=== PATIENT | male | born 1965 | race Caucasian/White ===

== ENCOUNTER 2020-03-15 13:25 | Observation (INO) | payer BC, SELFPAY ==
[2020-03-15] VITALS (8 sets, daily range): BP systolic 116–166; BP diastolic 72–99; PULSE 56–69; RESP 16–18; TEMP 36.5–37.1; O2SAT 93–100; BMI 38.1; BMI 37.4; BMI 37.5
--- NOTE | 2020-03-15 13:32 | NURSING ---
NO OLD EKGS
--- NOTE | 2020-03-15 14:02 | EKG12_ITS ---
Test Reason : CP Blood Pressure : / mmHG Vent. Rate : 060 BPM Atrial Rate : 060 BPM P-R Int : 178 ms QRS Dur : 104 ms QT Int : 394 ms P-R-T Axes : 043 018 029 degrees QTc Int : 394 ms Normal sinus rhythm Normal ECG Confirmed by SARA SINGH, MAME ([id number]), acquisition editor RUDDY ALEXIS ([id number]) on 03/21/2020 9:10:48 AM Referred By: NAEL Confirmed By:KELLY RUIZ MD
--- NOTE | 2020-03-15 14:03 | ED.DCSUM_ITS ---
History of Present Illness Chief Complaint: Chest Pain Informant: Patient Onset: Yesterday Current Severity: Mild Maximum Severity: Moderate Narrative: Patient presents secondary to chest pain. He states last evening he was driving and got sharp chest pain left upper chest. This lasted a few minutes but then was replaced with a constant ache in the left upper chest and shoulder. Patient does have history of cardiac disease and has one cardiac stent that was placed 6 years ago. He states he had another lesion at that time was approximately 45 or 50% to that was not treated. He has not had a repeat cath since that time to reevaluate this lesion. Patient denies shortness of breath or sweats. - Past Medical History (1) Diabetes Status: Chronic (2) Hypertension Status: Chronic (3) High cholesterol Status: Chronic (4) H/O heart artery stent Status: Chronic (5) Hx of appendectomy Status: Chronic Past Medical History - Allergies and Home Meds Allergies/Adverse Reactions: Allergies metformin Allergy (Verified 03/15/20 13:28) NEEDS FOLLOW-UP LETHARGIC morphine Allergy (Verified 03/15/20 13:28) NEEDS FOLLOW-UP SEVERE HYPOTENSION Primary Care Physician: NOT,DEFINED [NON-STAFF] - Prior records reviewed: Yes Lives: Spouse/ Significant Other Smoking Status: Never smoker Review of Systems General: Denies: Chills, Fever Eyes: Denies: Visual changes - bilaterally ENT: Denies: Bilateral ear pain Cardiovascular: Reports: Chest pain Respiratory: Denies: Dyspnea, Cough Gastrointestinal: Denies: Abdominal pain, Nausea, Vomiting, Diarrhea Genitourinary: Denies: Dysuria Skin: Denies: Rash Neurological: Denies: Headache Hematologic: Denies: Easy bruising, Easy bleeding Allergy: Denies: Uticaria Physical Exam Vital Signs/Narrative: Vital Signs Temp Pulse Resp BP Pulse Ox 03/15/20 13:29 98.3 F 600 H 16 162/96 H 97 Inital Vital Signs reviewed: Yes General: Well nourished, Well developed Head: Normocephalic ENT: Moist mucous membranes Neck: Supple Cardiovascular: Regular rate, Regular rhythm Respiratory: No distress, CTA bilaterally Abdomen: Soft, Nontender Extremities: Nontender Skin: Normal color Neurological: Alert, Oriented x3 Psychological: Normal affect Diagnostic/Tx/Re-eval Impressions Chest X-Ray 03/15/20 14:06 IMPRESSION: There is a well-defined 1.5 cm x 1.3 cm nodule in the right lower lobe. No prior examination is available for comparison. Correlation with a CT scan is recommended if clinically indicated. Electronically Signed: Fortino Charles, at 14:19 EDT , Service support , 03/15/20 14:06 Chest 1 View (Portable) [RAD] Stat Laboratory Results 03/15/20 03/15/20 13:40 13:40 WBC 4.8 RBC 4.83 Hgb 14.6 Hct 43.1 MCV 89.2 MCH 30.2 MCHC 33.9 RDW Std Deviation 40.0 RDW Coeff of Sabina 12.3 Plt Count 177 MPV 9.4 Immature Gran % (Auto) 0.200 Neut % (Auto) 62.0 Lymph % (Auto) 25.9 [place] % (Auto) 8.6 Eos % (Auto) 2.9 Baso % (Auto) 0.4 Absolute Neuts (auto) 3.0 Absolute Lymphs (auto) 1.24 Nucleated RBC % 0 Sodium 140 Potassium 4.1 Chloride 108 H Carbon Dioxide 27.0 Anion Gap 5 BUN 14 Creatinine 1.05 Estim Creat Clear Calc 87.25 Est GFR (MDRD) Af Amer 94 Est GFR (MDRD) Non-Af 78 BUN/Creatinine Ratio 13.3 Glucose 172 H Calcium 9.2 Troponin I < 0.015 - EKG Initial EKG Interpretation: Sinus Rhythm - Sinus at 60 with no acute ischemia. - Medical Decision Making She was given aspirin on arrival. Test results are discussed with him. There is findings of a lung nodule on his chest x-ray, however patient did have a CT scan of his chest on February [id number] that showed densely calcified right lower lobe nodule that is thought to be benign. Patient does voice concern that in the past his cardiology tests have always been unremarkable however he did have significant blockage requiring a stent. I spoke with hospitalist about this and he will speak with cardiology here as well. Patient will be admitted for further evaluation. ED Disposition - Plan for ED Patient: Disposition: [facility] Diagnosis: Chest pain Referrals: NOT,DEFINED [NON-STAFF] -
--- NOTE | 2020-03-15 14:06 | RAD_ITS ---
STUDY: X-RAY CHEST REASON FOR EXAM: Male, 55 years old. CHEST PAIN THAT STARTED LAST NIGHT, ALVARENGA TECHNIQUE: Single AP portable view of the chest. COMPARISON: None. FINDINGS: EKG electrodes are seen. There is a 1.5 cm x 1.3 cm well-defined nodule in the right lower lobe. There are scattered calcified granulomas. Correlation with a CT scan is recommended. There is no demonstrated pleural abnormality. Normal size heart. Normal mediastinum and kaiser. Normal visualized pulmonary arteries. Normal visualized aortic arch and descending thoracic aorta. There are degenerative changes of the visualized thoracic spine. Normal visualized ribs, clavicles, and shoulders. There is no demonstrated abnormality of the visualized soft tissue structures of the upper abdomen. RAD/Chest 1 View (Portable) IMPRESSION: There is a well-defined 1.5 cm x 1.3 cm nodule in the right lower lobe. No prior examination is available for comparison. Correlation with a CT scan is recommended if clinically indicated. Electronically Signed: Fortino Charles, at 14:19 EDT , Service support ,
[2020-03-15] MEDS: Aspirin 81 MG TAB.CHEW 324 MG PO (14:16)
[2020-03-15 14:17] LABS: Absolute Lymphocyte Count 1.24 X10^3/uL (0.83-4.51); Basophil# 0.02 X10^3/uL; Basophil% 0.4 % (0-1); Eosinophil# 0.14 X10^3/uL; Eosinophils% 2.9 % (0-5); Hematocrit 43.1 % (40-54); Hemoglobin 14.6 g/dL (13.0-16.5); Lymphocyte # 1.24 X10^3/ul (4.0); Lymphocyte % 25.9 % (19-41); Mean Corp Hgb Conc 33.9 g/dL (32-36); Mean Corpuscular Hgb 30.2 pg (27.0-32.0); Mean Corpuscular Volume 89.2 fL (80-94); Mean Platelet Vol. 9.4 fl (6.2-12.0); Monocyte# 0.41 X10^3/uL; Monocyte% 8.6 % (0-10); NRBC Flagged by Analyzer 0 % (0-5); Neutrophil # 2.97 X10^3/uL (2.7-7.7); Platelet Count 177 K/mm3 (150-450); RBC Distribution Width CV 12.3 % (11.6-14.6); Red Blood Count 4.83 M/mm3 (4.6-6.2); White Blood Count 4.8 K/mm3 (4.4-11.0)
[2020-03-15 14:26] LABS: Anion Gap 5 (5-15); BUN 14 mg/dL (7-18); BUN/Creat Ratio 13.3 RATIO (10-20); Calcium,Total 9.2 mg/dL (8.5-10.1); Chloride 108 mmol/L (98-107); Creatinine, Serum 1.05 mg/dL (0.70-1.30); EST Glomerular Filtration Rate 78 mL/min (>60); Est Glom Filt Rate - Afr Amer 94 mL/min (>60); Estimated Creatinine Clearance 87.25 ml/min; Glucose 172 mg/dL (74-106); Potassium 4.1 mmol/L (3.5-5.1); Sodium Level 140 mmol/L (136-145)
--- NOTE | 2020-03-15 15:04 | NURSING ---
PCU OBS [facility]
--- NOTE | 2020-03-15 15:21 | HP.PCM_ITS ---
Problem List (1) Benign prostatic hyperplasia Status: Chronic (2) Hyperlipidemia Status: Chronic (3) Type 2 diabetes mellitus Status: Chronic (4) Hypertension Status: Chronic (5) H/O heart artery stent Status: Chronic (6) Chest pain Status: Acute History of Present Illness Date of Admission: 03/15/20 Chief Complaint: Chest pain. The patient is a 55 year old M with past medical history as mentioned above presented to the emergency room because of chest pain. Patient symptoms started yesterday when he was driving back home, started having left-sided chest pain, initially was sharp pain, 10 out of 10 in severity, radiates to his left shoul drew and left upper arm, lasted for about 3 minutes and then started to improve. Afterwards, he continued to have dull aching pain which was around 4-5 out of 10 in severity and has been constant since then. He denied associated shortness of breath, palpitation, dizziness or lightheadedness. He denied diaphoresis, nausea or vomiting. 6 years ago, he had recurrent episode of chest pain for which he had stress test that was done twice at [facility] and according to the patient, both stress test came back okay. His doctor decided to go for heart cath that time and he was found to have a lesion in his 1 of the coronary arteries of 85% stenosis which was stented x1 and he was informed that he had another blood vessel lesion which is about 50% stenosis. No official documents available. In the emergency department, blood pressure was slight elevated, other vital signs were stable. Routine blood work was unremarkable. EKG revealed normal sinus rhythm, normal intervals, normal QRS, no acute hemic changes. Troponin was negative. He is being admitted for chest pain for evaluation. Past Medical History Past Medical History (Chronic Problems): Chronic Problems Benign prostatic hyperplasia (Chronic) Hyperlipidemia (Chronic) Type 2 diabetes mellitus (Chronic) Hypertension (Chronic) H/O heart artery stent (Chronic) Hx of appendectomy (Chronic) Allergies metformin Allergy (Verified 03/15/20 13:28) NEEDS FOLLOW-UP LETHARGIC morphine Allergy (Verified 03/15/20 13:28) NEEDS FOLLOW-UP SEVERE HYPOTENSION Home Medications: Ambulatory Orders Medication Instructions Recorded Glimepiride [Amaryl] 4 mg PO BID 03/15/20 Losartan Potassium 25 mg PO DAILY 03/15/20 Metoprolol Tartrate 12.5 mg PO BID 03/15/20 Rosuvastatin Calcium [Crestor] 10 mg PO SA 03/15/20 Tamsulosin HCl [Flomax] 0.4 mg PO DAILY 03/15/20 Surgical History: appendectomy Psychiatric History: No pertinent psych hx Lives: Spouse/ Significant Other Smoking Status: Never smoker Alcohol: None Drugs: None - *Family History Maternal History Items: Heart Disease Paternal History Items: No pertinent history Sibling History Items: Diabetes Review of Systems Constitutional: Denies: Anorexia, Chills, Fever, Weakness Eyes: Denies: Blurred vision, Double vision, Drainage, Redness HEENT: Denies: Difficulty Hearing, Ear Pain, Eye Pain, Nasal Congestion, Sore Throat Cardiovascular: Reports: Chest Pain, Chest Pressure. Denies: Edema, Heaviness, Light Headedness, Palpitations, Paroxysmal Noc. Dyspnea, Syncope Respiratory: Denies: Cough, Hemoptysis, Pleuritic Pain, Shortness of Breath, Sputum production, Wheezing Gastrointestinal: Denies: Abdominal Pain, Constipation, Diarrhea, Nausea, Vomiting Genitourinary: Denies: Dysuria, Frequency, Hematuria Musculoskeletal: Denies: Arm Pain, Back Pain, Foot Pain Skin: Denies: Dryness, Rash Neurological: Denies: Balance problems, Blurred vision, Double vision, Change in Speech, Slurred speech, Headaches, Incoordination, Numbness Psychiatric: Denies: Anxiety, Depression Endocrine: Denies: Change in Body Habitus, Polydipsia, Polyuria VTE Information - Inpt Only VTE Present on Admission: No VTE Mechan Device Prophylaxis: None VTE Pharm Prophylaxis ordered?: No Patient Problems: Active and Suspected Problems Chest pain (Acute) - Physical Exam Vitals/I&O's: Vital Signs Temp Pulse Resp BP Pulse Ox 98.3 F 69 18 153/96 H 95 03/15/20 13:29 03/15/20 14:20 03/15/20 14:20 03/15/20 14:20 03/15/20 14:20 Oxygen Delivery Method Room Air Weight: 281 lb 1.43 oz Body Mass Index (BMI) 38.1 General: Alert, Oriented x3, Cooperative, No apparent distress HEENT: Atraumatic, PERRLA, EOMI, Normocephalic Oral: Moist Mucosa, No Gingival or Mucosal Lesions/ Ulcerations Neck: Supple, No JVD, Negative Carotid Bruits, Trachea Midline, Thyroid Normal Size and Texture Lungs: Clear to auscultation, Normal air movement, No rhonchi, No wheeze, No rales Cardiovascular: Regular rate, Regular Rhythm, Normal S1, Normal S2, PMI Normal Abdomen: Bowel Sounds Present, Soft, Non Tender, Non-Distended, No Hepato- splenomegaly Extremities: No clubbing, No cyanosis, No edema Skin: No rashes, No breakdown Lymphatic: No Cervical, Supraclavicular, or Inguinal Adenopathy Neurological: Cranial nerves II-XII grossly intact, Motor Exam 5/5 strength throughout Psych/Mental Status: Normal Affect, Appropriate, Alert and oriented to time, place, person, mood and affect Laboratory Results 03/15/20 13:40: WBC 4.8, RBC 4.83, Hgb 14.6, Hct 43.1, MCV 89.2, MCH 30.2, MCHC 33.9, RDW Std Deviation 40.0, RDW Coeff of Sabina 12.3, Plt Count 177, MPV 9.4, Immature Gran % (Auto) 0.200, Neut % (Auto) 62.0, Lymph % (Auto) 25.9, [place] % (Auto) 8.6, Eos % (Auto) 2.9, Baso % (Auto) 0.4, Absolute Neuts (auto) 3.0, Absolute Lymphs (auto) 1.24, Nucleated RBC % 0 03/15/20 13:40: Sodium 140, Potassium 4.1, Chloride 108 H, Carbon Dioxide 27.0, Anion Gap 5, BUN 14, Creatinine 1.05, Estim Creat Clear Calc 87.25, Est GFR (MDRD) Af Amer 94, Est GFR (MDRD) Non-Af 78, BUN/Creatinine Ratio 13.3, Glucose 172 H, Calcium 9.2, Troponin I < 0.015 Clinical Impression(s) from Imaging Studies Chest X-Ray 03/15/20 14:06 IMPRESSION: There is a well-defined 1.5 cm x 1.3 cm nodule in the right lower lobe. No prior examination is available for comparison. Correlation with a CT scan is recommended if clinically indicated. Electronically Signed: Fortino Charles, at 14:19 EDT , Service support , Assessment/Plan All Active Problems Chest pain (Acute) This is a 55 years old male patient presented to the emergency room because of chest pain and he is being admitted for evaluation. #1 chest pain: In context of history of CAD status post stents. 60s ago, patient had recurrent chest pain, had 2 stress tests that were negative according to the patient and later, he went for cardiac catheterization found to have a lesion of 85% stenosis that was stented. No documents available. Initial EKG revealed no acute, changes. Troponin was negative. Chest x-ray showed no acute findings. Blood pressure slight elevated, other vital signs are stable. Discussed the case with cardiology over the phone, recommended 2D echocardiogram as well as stress echocardiogram. Plan: Admit to PCU for observation, cardiac monitoring, serial cardiac enzymes, repeat EKG tomorrow morning, 2D echocardiogram, stress echocardiogram tomorrow morning, obtain records from [facility], gentle IV fluids for hydration, Tylenol PRN, sublingual nitroglycerin PRN, IV antiemetics as needed. #2 right lower lung nodule: Chronic, patient is aware of it. He has been following up with his PCP, had CT scans in the past and showed stable size of the lung nodule. Recommend follow-up with PCP as before. #3 CAD status post stents: Plan as above, continue losartan, metoprolol, Crestor, start aspirin. #4 type 2 diabetes mellitus: ADA diet, Accu-Cheks, insulin sliding scale, continue glimepiride twice daily. #5 hypertension: Blood pressure slight elevated, continue losartan and metoprolol, start IV hydralazine PRN. #6 hyperlipidemia: Continue statins. #7 benign prostatic hypertrophy: Continue Flomax. #8 DVT prophylaxis: Low risk patient, no prophylaxis dictated. This note was generated with [employer] dictation software. It may contain incorrect words, spelling, and punctuation that were not noted in checking the note before signing. OBSV E&M: [id number] Initial observation care L3
--- NOTE | 2020-03-15 16:03 | STEWCON_ITS ---
Reason For Study: CHEST PAIN Stress Results Protocol: Stress Echocardiogram Maximum Predicted HR: 165 bpm Target HR: 140 bpm % Maximum Predicted HR: 87 % DurationHeart Rate Stage (mm:ss) (bpm) BP Comment BASELINE 58 142/80DILUTED DEFINITY 5 CC USED LETY PROTOCOL- STAGE 1 3:00 90 140/80NO SX LETY PROTOCOL- STAGE 2 3:00 103 144/78TWINGE OF PAIN L BREAST/SHOULDER 03/10 LETY PROTOCOL- STAGE 3 3:00 126 178/84CP MORE FREQUENT , SOB LETY PROTOCOL- STAGE 4 1:07 144 / CP -04/09, SOB RECOVERY 73 152/74CP SUBSIDED Stress Duration: 10:07 mm:ss Maximum Stress HR: 144 bpm Baseline Echocardiogram Findings The estimated ejection fraction is 60 %. Post exercise EF is 70-75%. Stress Echo Wall motion Data Resting WM Intermediate WM Stress WM Resting Wall Motion Wall Motion Stress No regional wall motion No regional wall motion abnormalities noted. abnormalities noted. Stress Results Normal blood pressure response to exercise. EKG Data The baseline ECG displays normal sinus rhythm. No significant ischemic changes. Symptoms with Stress The patient experinced no chest pain . Interpretation Summary The estimated ejection fraction is 60 %. Stress echo is negative for exercise induced CP or EKG or echocardiographic changes of ischemia Contrast injection was performed. Ordering Physician: Monet Kendrick Referring Physician: Kim Bolden DO Performed By: Andie Hernadez, RDCS, RVT
--- NOTE | 2020-03-15 16:03 | ECHOCS_ITS ---
Reason For Study: CHEST PAIN Procedure This was a 2D Doppler, Color Flow transthoracic echocardiogram. The study was technically difficult. Contrast injection was performed. Exam performed in department. Left Ventricle Normal LV size. The estimated ejection fraction is 60 %. No evidence for diastolic dysfunction. No regional wall motion abnormalities noted. Right Ventricle Normal RV size. Normal systolic function. Atria Normal left atrium. Normal right atrium. No doppler evidence for ASD. Mitral Valve There is no mitral valve stenosis. No mitral valve insufficiency. Tricuspid Valve There is no tricuspid stenosis. Trivial tricuspid valve insufficiency. Normal pulmonary artery pressure. Aortic Valve Trisinus/trileaflet aortic valve. There is no aortic stenosis. No aortic valve insufficiency. Pulmonic Valve There is no pulmonic valvular stenosis. No pulmonic valve insufficiency identified. Great Vessels Normal aortic root. Pericardium/Pleural No pericardial effusion. Medication Diluted definity 2.0ml given slow IV push to enhance endocardial definition. MMode/2D Measurements & Calculations LVIDd: 4.9 cm IVSd: 1.3 cm Ao root diam: 4.1 cm LVIDs: 2.6 cm LVPWd: 1.2 cm RVDd: 4.2 cm FS: 47.4 % LAV(MOD-bp): 57.9 ml EDV(MOD-sp4): 128.0 ml EDV(MOD-sp2): 131.0 ml LAV(MOD-bp) Indexed: 23.7 ml/m2 ESV(MOD-sp4): 39.6 ml EF(MOD-sp2): 66.6 % LAV(MOD-sp2): 50.2 ml EF(MOD-sp4): 69.1 % LAV(MOD-sp4): 67.7 ml SV(MOD-sp4): 88.4 ml SV(MOD-sp2): 87.2 ml LA A4 area: 21.9 cm2 LA dimension(2D): 5.1 cm RA A4 area: 16.1 cm2 Time Measurements MV dec time: 0.25 sec Doppler Measurements & Calculations MV E max mars: 73.4 cm/sec Lat Peak E' Mars: 9.8 cm/sec Med Peak E' Mars: 7.4 cm/sec MV A max mars: 56.9 cm/sec E/E' lat: 7.5 E/E' med: 9.9 MV E/A: 1.3 Ao V2 max: 81.3 cm/sec LV V1 max: 146.2 cm/sec PA V2 max: 129.8 cm/sec Ao max P.6 mmHg LV V1 max P.5 mmHg LV V1 mean P.1 mmHg LV V1 mean: 93.7 cm/sec LV V1 VTI: 26.5 cm TR max mars: 230.7 cm/sec TR max P.4 mmHg Interpretation Summary The estimated ejection fraction is 60 %. No evidence for diastolic dysfunction. The study was technically difficult. Contrast injection was performed. Ordering Physician: Monet Kendrick Referring Physician: TABBY PASCUAL Performed By: Andie Hernadez, NED, RVT
--- NOTE | 2020-03-15 16:06 | EKG12_ITS ---
Test Reason : CP ADMISSION Blood Pressure : / mmHG Vent. Rate : 061 BPM Atrial Rate : 061 BPM P-R Int : 180 ms QRS Dur : 106 ms QT Int : 394 ms P-R-T Axes : 044 031 029 degrees QTc Int : 396 ms Normal sinus rhythm Normal ECG No previous ECGs available Confirmed by SARA SINGH, MAME ([id number]), video news editor RUDDY ALEXIS ([id number]) on 03/21/2020 9:25:08 AM Referred By: CHARU Confirmed By:KELLY RUIZ MD
[2020-03-15 17:15] LABS: Bedside Glucose 84 mg/dL (70-110)
[2020-03-15] MEDS: 0.9% Normal Saline 1,000 ML 75 ML IV (17:30)
[2020-03-15] MEDS: Glimepiride 4 MG Tablet PO (17:31)
[2020-03-15] MEDS: Metoprolol Tartrate 25 MG Tablet 12.5 MG PO (21:12)
[2020-03-15 21:21] LABS: Bedside Glucose 75 mg/dL (70-110)
[2020-03-16] VITALS (9 sets, daily range): BP systolic 109–132; BP diastolic 65–78; PULSE 55–84; RESP 12–18; TEMP 36.5–36.8; O2SAT 92–96
[2020-03-16] MEDS: Acetaminophen 325 MG Tablet 650 MG PO (05:32)
[2020-03-16] MEDS: Aspirin E.C. 81 MG Tablet PO (05:33)
[2020-03-16] MEDS: Losartan Potassium 25 MG Tablet PO (05:33)
--- NOTE | 2020-03-16 05:34 | NURSING ---
Aspirin and Cozaar given early for stress test
--- NOTE | 2020-03-16 05:55 | EKG12_ITS ---
Test Reason : AM EKG Blood Pressure : / mmHG Vent. Rate : 056 BPM Atrial Rate : 056 BPM P-R Int : 180 ms QRS Dur : 110 ms QT Int : 418 ms P-R-T Axes : 039 029 023 degrees QTc Int : 403 ms Sinus bradycardia Otherwise normal ECG When compared with ECG of 15-MAR-2020 16:54, MANUAL COMPARISON REQUIRED, DATA IS UNCONFIRMED Confirmed by SARA SINGH, MAME ([id number]), field map editor RUDDY ALEXIS ([id number]) on 03/21/2020 9:17:55 AM Referred By: CHARU Confirmed By:KELLY RUIZ MD
[2020-03-16 06:41] LABS: Bedside Glucose 99 mg/dL (70-110)
[2020-03-16] MEDS: Tamsulosin HCl 0.4 MG Capsule PO (12:16)
[2020-03-16] MEDS: Glimepiride 4 MG Tablet PO (12:17)
[2020-03-16] MEDS: Metoprolol Tartrate 25 MG Tablet 12.5 MG PO (12:17)
[2020-03-16 12:20] LABS: Bedside Glucose 118 mg/dL (70-110)
--- NOTE | 2020-03-16 14:08 | DCINST_ITS ---
- Discharge Diagnoses Current Active Problems: Current Active and Chronic Problems Benign prostatic hyperplasia (Chronic) Hyperlipidemia (Chronic) Type 2 diabetes mellitus (Chronic) Chest pain (Acute) You will use the following diet at home:: Calorie/Carbohydrate Controlled (specify 1200, 1400, etc) - 1800 tobin Your food should be the consistency of: Regular Your liquids should be the consistency of: Regular/Thin Discharge Activity: Return to Normal Activity Weight Bearing Status: Full weight bearing Allergies/Adverse Reactions: Allergies metformin Allergy (Verified 03/15/20 13:28) NEEDS FOLLOW-UP LETHARGIC morphine Allergy (Verified 03/15/20 13:28) NEEDS FOLLOW-UP SEVERE HYPOTENSION Medications to take at Discharge Glimepiride [Amaryl] 4 mg PO BID 03/15/20 Losartan Potassium 25 mg PO DAILY 03/15/20 Metoprolol Tartrate 12.5 mg PO BID 03/15/20 Tamsulosin HCl [Flomax] 0.4 mg PO DAILY 03/15/20 Aspirin E.C. [Ecotrin] 81 mg PO DAILY@0800 tablet 03/16/20 Clopidogrel Bisulfate [Plavix] 75 mg PO DAILY #30 tab 03/16/20 Rosuvastatin Calcium [Crestor] 5 mg PO DAILY #0 03/16/20 The following prescriptions were given: Clopidogrel Bisulfate [Plavix] 75 mg PO DAILY #30 tab Transmission Status: Pending to [id number] Primary Care Physician: NOT,DEFINED [NON-STAFF] - Test Results: Test results from this visit will be discussed in further detail at your follow- up appointment, if applicable. Please Follow Up With: Gaetano Alejo When: call him this week for follow up
--- NOTE | 2020-03-16 16:39 | PCM.DC.SUM ---
Discharge Date and Diagnosis Date of Admission: 03/15/20 Date of Discharge: 03/16/20 - Primary Discharge Diagnosis #1 musculoskeletal chest pain #2 coronary artery disease #3 type 2 diabetes #4 essential hypertension #5 hyperlipidemia - Secondary Discharge Diagnosis Chronic Problems Benign prostatic hyperplasia (Chronic) Hyperlipidemia (Chronic) Type 2 diabetes mellitus (Chronic) Hypertension (Chronic) H/O heart artery stent (Chronic) Hx of appendectomy (Chronic) Hospital Course and Treatment Operations: None Procedures: 2-D Echocardiogram, - - Stress echocardiogram Summary of Care Provided: The patient is a 55 year old M who was seen in the emergency room at [facility] with a chief complaint of left upper chest pain which he described as sharp in nature. Patient has a history of cardiac disease and had a cardiac stent placed approximately 6 years prior. Work-up in the emergency room included a troponin which was normal, EKG showed a normal sinus rhythm with no acute ischemic changes, chest x-ray showed the presence of a right lower lobe nodule that the patient was aware of, CT scan had been done in January 2020 and this nodule was densely calcified and was thought to be benign. Patient was placed in observation status on PCU, serial cardiac enzymes were performed which remained normal, patient underwent an echocardiogram and a stress echo-both of which did not show any abnormalities. On 03/16/2020, patient was seen and examined: On examination he appeared in good health and spirits. Vital signs as documented. Skin warm and dry and without overt rashes. Neck without JVD, neck was supple, trachea midline, thyroid was normal. Lungs clear bilaterally, normal air movement was noted. Heart exam notable for regular rhythm, normal sounds and absence of murmurs, rubs or gallops. Abdomen unremarkable and without evidence of organomegaly, masses, or abdominal aortic enlargement. Bowel sounds are present, abdomen is not distended. Extremities nonedematous, no cyanosis was noted, no clubbing was noted. Neuro: Cranial nerves II through XII are grossly intact, no focal motor deficits were noted, sensation to light touch and pinprick intact, motor exam 5/5 throughout. Psych: Patient is alert and oriented x3, he does not appear anxious or depressed, he does not appear agitated. Patient appears stable for discharge on 03/16/2020, I had a discussion with the patient concerning his stress test results-patient was reluctant to accept that he did not have an indication to undergo a cardiac catheterization, I gave the patient a choice of going on aspirin and Plavix until he was able to follow-up with his escalator attendant, patient felt that this is what he wanted to do and he was given a prescription for Plavix to take along with a baby aspirin a day. I also instructed the patient to increase his Crestor to 5 mg daily-he had only been taking 10 mg once a week. Patient was to follow-up with his escalator attendant and discuss whether he needed to stay on dual antiplatelet therapy. Patient was instructed to return to the hospital if he had more chest discomfort. - Physical Exam Vitals/I&O's: Vital Signs Temp Pulse Resp BP Pulse Ox 98.0 F 84 16 109/65 92 03/16/20 12:12 03/16/20 12:34 03/16/20 12:12 03/16/20 12:12 03/16/20 12:12 Oxygen Delivery Method Room Air Weight: 125.5 kg Body Mass Index (BMI) 37.4 Intake and Output for Last 24 Hours 03/14/20 03/15/20 03/16/20 23:59 23:59 23:59 Intake Total 1086.25 / 1086.25 597.5 / 597.5 Balance 1086.25 / 1086.25 597.5 / 597.5 Laboratory Results 03/15/20 16:50: Troponin I < 0.015 03/15/20 17:06: POC Glucose 84 03/15/20 19:18: Troponin I < 0.015 03/15/20 21:07: POC Glucose 75 03/16/20 06:32: POC Glucose 99 03/16/20 12:14: POC Glucose 118 H Discharge Activity: Return to Normal Activity Weight Bearing Status: Full weight bearing Home Medications: Medications to take at Discharge Glimepiride [Amaryl] 4 mg PO BID 03/15/20 Losartan Potassium 25 mg PO DAILY 03/15/20 Metoprolol Tartrate 12.5 mg PO BID 03/15/20 Tamsulosin HCl [Flomax] 0.4 mg PO DAILY 03/15/20 Aspirin E.C. [Ecotrin] 81 mg PO DAILY@0800 tab 03/16/20 Clopidogrel Bisulfate [Plavix] 75 mg PO DAILY #30 tab 04/16/20 Rosuvastatin Calcium [Crestor] 5 mg PO DAILY #0 03/16/20 Following Prescrptions Were Given to Patient: Clopidogrel Bisulfate [Plavix] 75 mg PO DAILY #30 tab Transmission Status: Received by [id number] Primary Care Physician: NOT,DEFINED [NON-STAFF] - Please Follow Up With: Gaetano Alejo When: call him this week for follow up Please Follow Up With: Kim Bolden DO Disposition: Home Minutes spent on discharge:: 30 Patient Condition:: Stable Medical Necessity - Tobacco Use Smoking Status: Never smoker Meaningful Use Info Meaningful Use Diagnoses (Choose all that apply): None applicable OBSV E&M: 52971 Observation care discharge
== END 2020-03-16 14:11 | disposition home or self-care (01) ==
LOC: ED 15:00 → PCU 15:45
PROVIDERS: Admitting Provider Hospitalist; Emergency Provider Emergency Medicine; PCP Family Medicine; Visit Provider Internal Medicine
DX: R07.89 Other chest pain (principal); E11.9 Type 2 diabetes mellitus without complications; I10 Essential (primary) hypertension; E78.5 Hyperlipidemia, unspecified; N40.0 Benign prostatic hyperplasia without lower urinary tract symptoms; Z95.5 Presence of coronary angioplasty implant and graft; Z79.899 Other long term (current) drug therapy; Z79.84 Long term (current) use of oral hypoglycemic drugs; I07.1 Rheumatic tricuspid insufficiency
CPT/HCPCS: 36415; 71045; 80048; 82962; 84484; 85025; 93005; 93017; 93306; 93350; 96360; 96361; 99218; 99285; J7030; Q9957; A4216; C8928; C8929; G0378

== ENCOUNTER → 2021-05-22 09:58 | Outpatient (CLI) | payer BC, SELFPAY ==
[2021-05-22 09:22] VITALS: BMI 37.4
[2021-05-22 13:05] LABS: AST(SGOT) 16 U/L (15-37); Alanine Aminotransfer ALT/SGPT 35 U/L (16-61); Albumin, Serum 4.1 g/dL (3.2-5.0); Alkaline Phosphatase 70 U/L (45-117); Anion Gap 5 (5-15); BUN 13 mg/dL (7-18); BUN/Creat Ratio 11.7 RATIO (10-20); Calcium,Total 9.4 mg/dL (8.5-10.1); Chloride 106 mmol/L (98-107); Cholesterol 189 mg/dL (200); Creatinine, Serum 1.11 mg/dL (0.70-1.30); EST Glomerular Filtration Rate 73 mL/min (>60); Est Glom Filt Rate - Afr Amer 88 mL/min (>60); Glucose 136 mg/dL (74-106); High Density Lipoprotein 50 mg/dL; Potassium 4.7 mmol/L (3.5-5.1); Protein, Total 8.1 g/dL (6.4-8.2); Sodium Level 138 mmol/L (136-145); T4 Free Direct 0.94 ng/dL (0.76-1.46); Thyroid Stim Hormone (TSH) 1.98 uIU/mL (0.358-3.74); Triglycerides 218 mg/dL; Very Low Density Lipoprotein 44 mg/dL (5-40)
[2021-05-22 13:29] LABS: Microalbumin,Random Urine 20.2 mg/L (NO RANGE EST.); Microalbumin:Creatinine Ratio 12.2 mg/g CRE (<30 mg/g CRE)
== END ==
PROVIDERS: PCP Family Medicine; Referring Provider Internal Medicine Endocrinology, Diabetes & Metabolism; Visit Provider Internal Medicine Endocrinology, Diabetes & Metabolism
DX: E11.65 Type 2 diabetes mellitus with hyperglycemia (principal); I10 Essential (primary) hypertension; E78.2 Mixed hyperlipidemia; E66.01 Morbid (severe) obesity due to excess calories; Z68.37 Body mass index [BMI] 37.0-37.9, adult
CPT/HCPCS: 36415; 80053; 80061; 82043; 82570; 84439; 84443

== ENCOUNTER 2025-02-14 12:57 | Outpatient (CLI) | payer BC, SELFPAY ==
[2025-02-14 15:29] LABS: CORTISOL PM 9.38 ug/dL (2.68-10.50)
== END 2025-02-14 23:59 | disposition home or self-care (01) ==
PROVIDERS: PCP Family Medicine; Referring Provider Nurse Practitioner Family; Visit Provider Nurse Practitioner Family
DX: R63.4 Abnormal weight loss (principal); R53.1 Weakness
CPT/HCPCS: 82533